=== PATIENT | male | born 1980 ===

== ENCOUNTER → 2025-07-15 14:29 | Outpatient (BNVA) | payer BC, SELFPAY | PROVIDERS: Family Provider Family Medicine; PCP Electrodiagnostic Medicine; Visit Provider Podiatrist Foot & Ankle Surgery | DX: M25.572 Pain in left ankle and joints of left foot (principal); M67.472 Ganglion, left ankle and foot; G57.92 Unspecified mononeuropathy of left lower limb | CPT/HCPCS: 73610 ==

== ENCOUNTER 2025-07-31 08:20 | Day surgery (SDC) | payer BC, SELFPAY ==
[2025-07-31] VITALS (8 sets, daily range): BP systolic 119–160; BP diastolic 75–98; PULSE 52–80; RESP 15–18; TEMP 36.3–36.5; O2SAT 95–98; BMI 36.2
--- NOTE | 2025-07-31 08:40 | W.PM.OPSUD ---
Surgery/Procedure H&P Update DATE OF PROCEDURE: July 31, 2025 DATE H&P PERFORMED: 07/15/25 H&P UPDATE INFORMATION: I have reviewed H&P completed within last 30 days, I have examined patient prior to procedure, No changes to prior documentation and Risks and benefits of the procedure reviewed PREOP DIAGNOSIS: Ganglion cyst with neuritis left ankle. PLANNED PROCEDURE: Operation Date: 07/31/25 09:40 Proposed Procedures p Excision Mass/Lesion(Left) - Kenan Tipton DPM
--- NOTE | 2025-07-31 09:02 | ANES.PREANE2 ---
Pre-Anesthetic Assessment Height/Weight: Height 5 ft 11 in Weight 260 lb Temp Pulse Resp BP Pulse Ox O2 Del Method 97.7 F 64 18 160/98 98 Room Air 07/31/25 08:30 07/31/25 08:30 07/31/25 08:30 07/31/25 08:30 07/31/25 08:30 07/31/25 08:30 Preop Diagnosis: Ganglion cyst with neuritis left ankle. Operation Date: 07/31/25 09:40 Proposed Procedures p Excision Mass/Lesion(Left) - Kenan Tipton DPM Was Beta Ira taken within 24 hours: N/A Was Clonidine taken within 24 hours: N/A Last intake: Intake Last Liquid Date 07/30/25 Last Liquid Time 20:30 Last Solid Date 07/30/25 Last Solid Time 20:30 Social No alcohol and No tobacco Exam alert, oriented x 3, clear to auscultation bilaterally and regular rate & rhythm Airway Submandibular: within normal limits Cervical ROM: within normal limits Mallampati: Class III Dentition: full Anesthetic Plan ASA status: 2 Anesthesia: General Other: No prior issues with anesthesia NPO since yesterday evening History of GERD, controlled with Protonix Denies any cardiac issues METs greater than 4 Plan for MAC anesthesia with local via surgeon Medications/Allergies Home Medications ?Medication ?Instructions ?Recorded ?Confirmed ?Last Taken ?Type pantoprazole 40 mg tablet,delayed 40 mg PO DAILY #90 tabs 03/30/23 07/30/25 07/30/25 Rx release cetirizine 10 mg capsule (Zyrtec) 10 mg PO DAILY PRN allergies 07/15/25 07/30/25 07/30/25 History fluticasone propionate 50 1 spray intranasal DAILY 07/15/25 07/30/25 07/30/25 History mcg/actuation nasal spray,suspension tamsulosin 0.4 mg capsule 0.4 mg PO DAILY 07/15/25 07/30/25 07/30/25 History montelukast 10 mg tablet 10 mg PO DAILY 07/30/25 07/30/25 07/30/25 History hydrocodone 7.5 mg-acetaminophen 1 tab PO Q6H PRN pain 7 days #28 07/31/25 Unknown Rx 325 mg tablet tabs Allergies Allergy/AdvReac Type Severity Reaction Status Date / Time Alpha-Gal Allergy ADR-Gastrointestinal Verified 07/30/25 10:09 (Hwfabbbby-Kaajr-2,3-Gala Upset ciprofloxacin (From Cipro) Allergy ALGY-Anaphy Verified 07/30/25 10:04 laxis erythromycin base Allergy swelling Verified 07/30/25 10:04 Current Medications Generic Name Dose Route Start Last Admin Trade Name Freq PRN Reason Stop Dose Admin Sodium Chloride 1,000 mls @ 30 mls/hr 07/31/25 08:15 07/31/25 08:44 Sodium Chloride 0.9% IV 08/01/25 08:14 30 mls/hr .Q24H FLAVIO Administration PFSH Anesthesia Social History (Updated 07/15/25 @ 14:38 by Archie Harden LPN) Smoking and tobacco/nicotine status: never used tobacco/nicotine Alcohol intake: never Substance/Drug Use: never
--- NOTE | 2025-07-31 10:02 | P.OP_ITS ---
Operative Report Date of procedure: July 31, 2025 Pre-op diagnosis: Acute left ankle pain M25.572 Ganglion cyst M67.40 Neuritis of left ankle G57.92 Post-op diagnosis: Acute left ankle pain M25.572 Ganglion cyst M67.40 Neuritis of left ankle G57.92 Procedure done: 1) excision of ganglion cyst left ankle. CPT code 03979 2) external neurolysis left saphenous nerve. CPT code 51782 Pathology: Soft tissue mass left ankle sent to pathology for gross anatomical review Surgeon: Kenan Tipton DPM Computer Game Programmer: Shaye Estimated blood loss: 1 mL 8 minutes IV fluids: See intraoperative documentation Urine output: No urine output Complications: No complications Findings: Soft tissue mass of unknown origin down to deep fascia. Brief History: Left ankle x-ray 3 views negative for acute osseous injury able to appreciate soft tissue envelope contour from soft tissue mass at the medial malleolus. Mass has been present for 4 weeks and becoming more painful, not interested in aspiration due to high recurrence rate. Patient experiencing pain with daily living and working requesting excision of ganglion cyst and external neurolysis. I reviewed at length with the patient, the risks, potential complications, benefits, alternatives, expectations, and typical outcomes associated with the surgery. The risks and potential complications were explained in detail, including but not limited to infection, wound dehiscence or soft tissue complications, bleeding and hematoma, chronic edema, neuritis or nerve damage producing numbness or chronic pain, CRPS, failure to relieve pain or worsening pain, thick / painful / unsightly scar, limited motion / stiffness, malposition, delayed union, malunion, or nonunion, fracture, reaction to implants, anesthetic complications, venous thromboembolism, and deformity recurrence. I discussed the notion of no regrets with the patient as it pertains to complications and outcomes. The patient seemed to understand the nature of the proposed care and required convalescence. They asked appropriate questions, answered to their satisfaction. They are aware no guarantees can be made as to a satisfactory outcome and they understand there may be other possible unforeseen complications or outcomes not listed here that will be treated accordingly if they arise. There were no writ ten or implied guarantees given to the patient. They gave informed consent to proceed. Procedure: Under mild sedation the patient was brought to the operating room and remained on the gurney in supine position. A timeout was performed. Anesthesia was administered by the anesthesia service. Local esthesia injected by myself consisting of one-to-one mixture 1% lidocaine and 0.5% Marcaine plain in a V- block to the medial distal ankle left lower extremity. Well-padded pneumatic tourniquet applied to the left high calf. The left lower extremity was scrubbed, prepped and draped utilizing normal aseptic technique. Left foot and ankle were then exanguinated with Esmarch bandage and tourniquet inflated to 250 mmHg. Attention was directed to the medial aspect of the left ankle where a palpable soft tissue mass was appreciated directly over this and incision was made linear in fashion through skin with a 15 blade with dissection carried down through subcutaneous tissues to the layer of crural fascia which was incised and soft tissue mass which was firm and nonfluid-filled measuring approximately 2 cm x 2 cm x 1 cm was excised sharply and passed from the operative field to be sent to pathology for gross anatomical review. Saphenous nerve was adhered to the soft tissue mass which was sharply and sized of adhesions and external neurolysis performed mobilizing the nerve medially, no further adhesions appreciated and nerve was left intact. No further abnormality of soft tissue was appreciated under direct visitation and palpation of the incision was irrigated with saline solution and closed in a layered fashion with deep fascia and subcutaneous tissue reapproximated with 4-0 Vicryl and skin with 4-0 nylon. The incision was dressed with Xeroform, sterile 4 x 4 gauze, Kerlix José Manuel wrap and stockinette followed by application of a postop shoe to the left lower extremity. Tourniquet was deflated and a prompt hyperemic response is noted to the distal digits of the left foot. Patient tolerated the procedure and anesthesia well and was transferred to the PACU with vital signs stable and vascular status intact. Following a period of postop monitoring we discharged home without home care instructions and scheduled follow-up.
[2025-07-31] MEDS: ceFAZolin 3,000 MG in sodium chloride 0.9% (100 ml) 100 ML 200 MG IV (10:05)
[2025-07-31] MEDS: BUPivacaine 0.5% INJ 10 mL 20 ML INTRAVESIC (10:05)
--- NOTE | 2025-07-31 11:35 | ANE.PACU2 ---
Inpatient post-anesthesia follow up: Airway intact: Yes Vital signs: Temperature 97.5 F Pulse Rate 52 Respiratory Rate 17 Blood Pressure 134/92 Pulse Oximetry 97 Oxygen Delivery Me thod Room Air Oxygen Flow Rate Fraction of Inspir ed Oxygen Hydration adequate: Yes Nausea and vomiting: No Pain level: 1 Mental status: Baseline
== END 2025-07-31 11:35 | disposition home or self-care (01) ==
PROVIDERS: Family Provider Family Medicine; PCP Electrodiagnostic Medicine; Visit Provider Podiatrist Foot & Ankle Surgery
PROC: (CPT 28041; principal; 2025-07-31 09:30)
DX: M67.472 Ganglion, left ankle and foot (principal); G57.92 Unspecified mononeuropathy of left lower limb; K21.9 Gastro-esophageal reflux disease without esophagitis; Z79.891 Long term (current) use of opiate analgesic; Z91.014 Allergy to mammalian meats
CPT/HCPCS: 28041; 64704; 88307; J0690; J2250; J3490; J7030; J9999